=== PATIENT | male | born 1985 | race Two or more races ===

== ENCOUNTER → 2018-01-11 | Outpatient (CLI) | payer OTHER ==
--- NOTE | 2018-01-11 09:02 | RADIOLOGY REPORT (SQ) ---
EXAM DESCRIPTION: U/S LTD DUPLEX ART/JOSE FLOW; U/S RETROPERITON (RENAL/AORTA) COMPLETED DATE/TIME: 01/11/2018 8:34 am REASON FOR STUDY: JACINTA (I70.1) I70.1 ATHEROSCLEROSIS OF RENAL ARTERY COMPARISON: None. TECHNIQUE: Realtime and static grayscale images acquired. Selected color Doppler, velocities and spe ctral images recorded. LIMITATIONS: Midline renal arteries not well-visualized off the aorta FINDINGS: RIGHT KIDNEY: RENAL ARTERY VELOCITIES: At the hilum, 52 cm/sec. Segmental artery velocity 66 cm/sec. RENAL VEIN: Color doppler flow present, patent. VELOCITY RATIO: 0.3. Normal waveforms. KIDNEY: 11 cm in length. No significant pathology. LEFT KIDNEY: RENAL ARTERY VELOCITIES: Upper hilum, 29 cm/sec. Segmental artery velocity 16 cm/sec. RENAL VEIN: Color doppler flow present, patent. VELOCITY RATIO: 0.2. Normal waveforms. KIDNEY: 11 cm in length. No significant pathology. BLADDER: Normal. OTHER: No other significant finding. IMPRESSION: NO DOPPLER EVIDENCE OF HEMODYNAMICALLY SIGNIFICANT RENAL ARTERY STENOSIS. COMMENT: NORMAL RENAL ARTERY/AORTA VELOCITY RATIO IS LESS THAN OR EQUAL TO 3.5. TECHNICAL DOCUMENTATION: JOB ID: [id number] [employer]- All Rights Reserved Reading location - IP/workstation name: [email or web address]
--- NOTE | 2018-01-11 09:02 | RADIOLOGY REPORT (SQ) ---
EXAM DESCRIPTION: U/S LTD DUPLEX ART/JOSE FLOW; U/S RETROPERITON (RENAL/AORTA) COMPLETED DATE/TIME: 01/11/2018 8:34 am REASON FOR STUDY: JACINTA (I70.1) I70.1 ATHEROSCLEROSIS OF RENAL ARTERY COMPARISON: None. TECHNIQUE: Realtime and static grayscale images acquired. Selected color Doppler, velocities and spe ctral images recorded. LIMITATIONS: Midline renal arteries not well-visualized off the aorta FINDINGS: RIGHT KIDNEY: RENAL ARTERY VELOCITIES: At the hilum, 52 cm/sec. Segmental artery velocity 66 cm/sec. RENAL VEIN: Color doppler flow present, patent. VELOCITY RATIO: 0.3. Normal waveforms. KIDNEY: 11 cm in length. No significant pathology. LEFT KIDNEY: RENAL ARTERY VELOCITIES: Upper hilum, 29 cm/sec. Segmental artery velocity 16 cm/sec. RENAL VEIN: Color doppler flow present, patent. VELOCITY RATIO: 0.2. Normal waveforms. KIDNEY: 11 cm in length. No significant pathology. BLADDER: Normal. OTHER: No other significant finding. IMPRESSION: NO DOPPLER EVIDENCE OF HEMODYNAMICALLY SIGNIFICANT RENAL ARTERY STENOSIS. COMMENT: NORMAL RENAL ARTERY/AORTA VELOCITY RATIO IS LESS THAN OR EQUAL TO 3.5. TECHNICAL DOCUMENTATION: JOB ID: [id number] [employer]- All Rights Reserved Reading location - IP/workstation name: [email or web address]
== END ==
LOC: RAD 07:41
PROVIDERS: ATTEND Internal Medicine
DX: I70.1 Atherosclerosis of renal artery (principal)
CPT/HCPCS: 76770; 93976